=== PATIENT | male | born 1960 | race Caucasian/White ===

== ENCOUNTER 2021-04-01 15:18 | Outpatient (REF) | payer OTHER, SELFPAY ==
[2021-04-06 16:52] LABS: Testosterone, Free 104.4 pg/mL (35.0-155.0); Testosterone, Total 391 ng/dL (250-1100)
== END 2021-04-01 15:19 | disposition home or self-care (01) ==
LOC: HO.MANLDS 15:18
PROVIDERS: PCP Physician Assistant; Visit Provider Physician Assistant
DX: N52.9 Male erectile dysfunction, unspecified (principal)
CPT/HCPCS: 36415; 84402; 84403

== ENCOUNTER 2022-05-12 10:05 | Outpatient (REF) | payer OTHER, SELFPAY ==
[2022-05-12 12:55] LABS: MANUAL DIFF FLAG NO
[2022-05-12 13:09] LABS: Basophils Absolute Auto 0.1 X10*3/uL (0.0-0.2); Basophils Percent Auto 0.8 % (0-2); Eosinophils Absolute Auto 0.2 X10*3/uL (0.0-0.4); Eosinophils Percent Auto 3.8 % (0-4); Hematocrit 42.9 % (42.0-52.0); Hemoglobin 14.7 g/dl (14.0-18.0); Imm Gran Abs Auto 0.08 X10*3/uL (0.00-0.03); Imm Gran Pct Auto 1.3 % (0.0-0.4); Lymphocytes Absolute Auto 1.6 X10*3/uL (1.2-4.9); Lymphocytes Percent Auto 24.9 % (20-40); Mean Corpuscular HGB Conc 34.3 g/dl (31.0-36.0); Mean Corpuscular Hemoglobin 29.1 pg (27.0-33.0); Mean Platelet Volume 10.6 fL (9.4-12.4); Monocytes Absolute Auto 0.5 X10*3/uL (0.1-1.2); Monocytes Percent Auto 7.8 % (2-11); Neutrophils Absolute Auto 3.9 x10*3/uL (2.0-8.3); Neutrophils Percent Auto 61.4 % (45-73); Platelet Count 322 X10*3/uL (160-400); Red Blood Count 5.05 X10*6/uL (4.60-5.80); Red Cell Distribution Width 14.5 % (11.0-16.0); White Blood Count 6.4 X10*3/uL (4.8-10.8)
[2022-05-12 13:44] LABS: Alanine Aminotransferase 24 U/L (0-40); Albumin Level 4.3 g/dL (3.5-5.0); Alkaline Phosphatase 103 U/L (39-117); Anion Gap 12 (12-20); Aspartate Amino Transferase 21 U/L (5-37); Bilirubin Total 0.6 mg/dL (0.0-1.0); Blood Urea Nitrogen 14 mg/dL (9-16); Calcium 9.4 mg/dL (8.4-10.2); Carbon Dioxide 30 mmol/L (22-29); Chloride 102 mmol/L (96-108); Cholesterol 217 mg/dL; Estimated Glomerular Filt Rate > 60; Glucose Random 129 mg/dL (60-115); HDL Cholesterol 50 mg/dL; LDL Cholesterol Calculated 140 mg/dl; Potassium 4.6 mmol/L (3.3-5.1); Sodium 139 mmol/L (135-145); Total Protein 6.9 g/dL (6.5-8.0); Triglycerides 139 mg/dL
[2022-05-12 13:59] LABS: Prostate Specific Antigen 9.35 ng/mL (<0.05-4.0); Thyroid Stimulating Hormone 1.36 uIU/mL (0.32-4.0); Vitamin D 25-OH Total 80.3 ng/mL (>30)
== END 2022-05-12 10:06 | disposition home or self-care (01) ==
LOC: HO.MANLDS 10:05
PROVIDERS: Visit Provider Internal Medicine
DX: Z00.00 Encounter for general adult medical examination without abnormal findings (principal); Z12.5 Encounter for screening for malignant neoplasm of prostate; Z20.2 Contact with and (suspected) exposure to infections with a predominantly sexual mode of transmission; E78.00 Pure hypercholesterolemia, unspecified; E55.9 Vitamin D deficiency, unspecified; G93.32 Myalgic encephalomyelitis/chronic fatigue syndrome
CPT/HCPCS: 36415; 80053; 80061; 82306; 84153; 84443; 85025

== ENCOUNTER 2023-04-15 07:57 | Outpatient (REF) | payer OTHER, SELFPAY ==
[2023-04-15 12:34] LABS: Estimated Average Glucose 131 mg/dL; Hemoglobin A1C 150.8308 umol/L; Hemoglobin A1c % 6.2 % (<6.0)
[2023-04-15 13:03] LABS: Alanine Aminotransferase 19 U/L (0-40); Albumin Level 4.2 g/dL (3.5-5.0); Alkaline Phosphatase 90 U/L (39-117); Anion Gap 13 (12-20); Aspartate Amino Transferase 22 U/L (5-37); Bilirubin Total 0.5 mg/dL (0.0-1.0); Blood Urea Nitrogen 19 mg/dL (9-16); Calcium 9.2 mg/dL (8.4-10.2); Carbon Dioxide 28 mmol/L (22-29); Chloride 106 mmol/L (96-108); Cholesterol 186 mg/dL (<200); Estimated Glomerular Filt Rate > 60; Glucose Random 147 mg/dL (60-115); HDL Cholesterol 53 mg/dL (>40); LDL Cholesterol Calculated 112 mg/dL (<100); Potassium 4.7 mmol/L (3.3-5.1); Sodium 142 mmol/L (135-145); Total Protein 7.2 g/dL (6.5-8.0); Triglycerides 105 mg/dL (<150)
[2023-04-15 13:18] LABS: Vitamin D 25-OH Total 31.3 ng/mL (>30)
[2023-04-15 13:25] LABS: Vitamin B12 416 pg/mL (200-900)
[2023-04-22 13:28] LABS: Testosterone, Total 366 ng/dL (250-1100)
== END 2023-04-15 07:58 | disposition home or self-care (01) ==
LOC: HO.MANLDS 07:57
PROVIDERS: Visit Provider Internal Medicine
DX: G35 Multiple sclerosis (principal); R73.9 Hyperglycemia, unspecified; N52.9 Male erectile dysfunction, unspecified
CPT/HCPCS: 36415; 80053; 80061; 82306; 82607; 83036; 84403

== ENCOUNTER 2024-04-27 10:05 | Outpatient (REF) | payer OTHER, SELFPAY ==
--- OUTSIDE RECORDS SUMMARY | 2024-04-27 11:20 | XMS_ITS | Clinical Summary ---
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 Name Role Phone Pcp, No Primary Care Provider Unavailabl e Allergies No known active allergies Social History Tobacco Use Types Packs/Day Years Used Date Smoking Tobacco: Former Smokeless Tobacco: Never Sex and Gender Information Value Date Recorded Sex Assigned at Not on file Gender Identity Not on file Sexual Orientation Not on file Last Filed Vital Signs Vital Sign Reading Time Taken Comments Blood Pressure 136/93 02/10/2020 9:47 AM EST Pulse 68 02/10/2020 9:47 AM EST Temperature 37.1 ??C (98.7 ??F) 02/10/2020 9:47 AM ES T Respiratory Rate - - Oxygen Saturation 98% 02/10/2020 9:47 AM EST Inhaled Oxygen Concentration - - Weight 81.6 kg (180 lb) 02/10/2020 9:47 AM EST Height 175.3 cm (5' 9 ) 02/10/2020 9:47 AM EST Body Mass Index 26.58 02/10/2020 9:47 AM EST Plan of Treatment Health Maintenance Due Date Last Done Comments Hepatitis C Virus Screening 1962 HIV Screening 10/07/1975 DTaP/Tdap/Td Vaccines (1 - Tdap) 1981 Colonoscopy 10/07/2007 Pneumococcal Vaccines 50+ (1 of 1 - PCV) 2012 Zoster (Shingles) Vaccine (1 of 2) 2012 Influenza Vaccine 09/15/2023 COVID-19 Vaccine (2 - 2023-2 5 season) 2023 05/26/2020 RSV Vaccine 60 years and old er and Patients (1 - 1-dose 75+ series) 2037 Hepatitis B Vaccines Aged Out No long er eligible based on patient's age to complete this topic Pneumococcal Vaccine: Pediat francy (0-5 Years) and At-Risk Patients (6 to 49 Years) Aged Out No longer eligible b ased on patient's age to complete this topic Care Teams Elastic Attacher Chainstitch Relationship Specialty Start Date End Date Pcp, No PCP - General General Medicine 01/31/20
--- OUTSIDE RECORDS SUMMARY | 2024-04-27 11:20 | XMS_ITS | Continuity of Care Document ---
Author Organization [facility], [facility] Address [address] [place] [address] [place] [address] Assessment Encounter Date Assessment Date Assessment LastModified by Organization Details LastModified Time 04/27/2024 04/27/2024 [id number] [place] [id number] (MASTER PLUMBER) MDM MODERATE MUST MEET 2 OUT OF 3 ELEMENTS: PROBLEMS, DATA OR RISK ELEMENT 1: PROBLEMS ADDRESSED 1 OR MORE CHRONIC ILLNESS WITH EXACERBATION OR 2 OR MORE STABLE CHRONIC ILLNESSES OR 1 UNDIAGNOSED NEW PROBLEM OR 1 ACUTE ILLNESS W/SYMPTOMS OR 1 ACUTE COMPLICATED INJURY ELEMENT 2: DATA MUST MEET 1 OF 3 CATEGORIES CATEGORY 1: REVIEW OF PRIOR EXTERNAL NOTES, REVIEW OF RESULTS, ORDERING OF EACH TEST, ASSESSMENT REQUIRING INDEPENDENT HISTORIAN OR CATEGORY 2: INDEPENDENT INTERPRETATION OF TESTS BY ANOTHER PHYSICIAN OR SPECIALIST OR CATEGORY 3: DISCUSSION OF MGT OR TEST INTERPRETATION W/EXTERNAL PHYSICIAN OR SPECIALIST ELEMENT 3: RISK RISK OF COMPLICATIONS AND/OR MORBIDITY OR MORTALITY OF PATIENT MANAGEMENT PROVIDER MUST THOROUGHLY DOCUMENT EACH ELEMENT THAT IS COVERED Not available 04/27/2024 09:53:35 Plan of Treatment Reminders Order Date Submit Date Provider Last Modified By Organization Details Last Modified Time Details Appointments FOLLOW UP 15 2024 09:45A M DR GUPTA Not available Not available Not available Lab PSA, total + free, serum or plasma 2024 025 [facility], [address] [place] [address], [place], [id number], 04/27/2024 09:57:21 HbA1c (hemoglob in A1c), blood 2024 025 [facility], [address] [place] [address], [place], [address], 04/27/2024 09:57:21 CMP, serum or plasma 2024 025 [facility], [address] [place] [address], [id number], 04/27/2024 09:57:21 CBC 2024 025 [facility], [address] [place] [address], [id number], 04/27/2024 09:57:21 lipid panel, serum 2024 025 [facility], [address] [place] [address], [id number], 04/27/2024 09:57:21 vitamin D, 25-hydrox y, total, serum 2024 025 [facility], [address] [place] [address], [id number], 04/27/2024 09:57:21 vitamin B12, serum 2024 025 [facility], [address] [place] [address], [id number], 04/27/2024 09:57:21 Referral None recorded. Procedures None recorded. Surgeries None recorded. Imaging CT, coronary calcium score 2024 025 [email or web address] [facility], [facility] [place], [address], 04/27/2024 10:15:34 Medication Orders None recorded. Patient TargetsNo targets recorded. Patient InstructionsNo instructions recorded. Reason for Referral None Reported. Problems Name Problem SNOMED Code Status Onset Date Resolution Date Notes Provider Name and Address Organization Details Recorded Time Obstructiv e sleep apnea syndrome 45255449 Active 2017 Not Available [facility] 4 23:20:52 Cyst of kidney 786133357 Active 2017 Not Available [facility] 4 23:20:52 Gastroesop hageal reflux disease 312375036 Active 2017 Not Available [facility] 4 23:20:52 Multiple sclerosis 85285734 Active 2017 Not Available [facility] 4 23:20:52 Prostate specific antigen above reference range 836567142 Active 2018 Not Available [facility] 4 23:20:52 Hyperglyce harshad 22153701 Active 2023 Not Available [facility] 4 23:20:52 Cough 84421806 Active 2024 Hardik Gupta, [address], [address], [facility] 5 17:07:15 Patellofem oral stress syndrome 359770755 Active 2024 Hardik Gupta [address], [address], [facility] 5 09:48:13 Notes:Some problems listed i n Documents: #[id number], #[id number], #[id number], #[id number] could not be added to this patient's chart. Please review these documents and add these problems to the patient's chart manually as needed. Problem Notes None recorded. Procedures Surgical History Date Name Laterality Status Provider Name and Address Organization Details Recorded Time 10/23/19 22 Colonoscopy completed Hardik Gupta [address], [address], [facility] 10/22/2021 14:58:33 07/04/19 19 Colonoscopy completed Cynthia [facility] 07/03/2018 12:31:09 05/28/19 16 Colonoscopy completed Cynthia [facility] 11/08/2017 08:33:30 Imaging Results None recorded. Procedure Notes None recorded. Medical Equipment None Reported. Allergies No known drug allergies Medications Name Sig Start Date Stop Date Status Note LastModified by Organization Details LastModified Time amoxicillin 500 mg capsule TAKE 1 CAPSULE BY MOUTH EVERY 8 HOURS 04/27 completed Not Available Not Available Not Available prednisone 10 mg tablet 04/26 completed Not Available Not Available Not Available sildenafil 50 mg tablet TAKE 1 TABLET BY MOUTH EVERY DAY FOR 30 DAYS active Not Available Not Available No t Available triamcinolo ne acetonide 0.5 % topical cream APPLY A THIN LAYER TO THE AFFECTED AREA(S) BY TOPICAL ROUTE 2 TIMES PER DAY 12/18 completed Not Available Not Available Not Available azithromyci n 250 mg tablet TAKE 2 TABLETS BY MOUTH TODAY, THEN TAKE 1 TABLET DAILY FOR 4 DAYS DIRECTED 04/27 completed Not Available Not Available Not Available peg-electro lyte solution 420 gram oral solution TAKE 8 OUNCE BY MOUTH DIRECTED FOLLOW INSTRUCTI ONS GIVEN BY DOCTORS OFFICE 01/11 completed Not Available Not Available Not Available acetaminoph en 500 mg tablet TAKE 1 TABLET EVERY 6 HOURS NEEDED FOR PAIN 04/27 completed Not Available Not Available Not Available tamsulosin 0.4 mg capsule TAKE 1 CAPSULE BY MOUTH EVERY DAY active Not Available Not Available No t Available Mapap (acetaminop hen) 500 mg capsule TAKE 1 CAPSULE BY MOUTH EVERY 6 HOURS NEEDED FOR PAIN 04/27 completed Not Available Not Available Not Available oseltamivir 75 mg capsule 03/27 completed Not Available Not Available Not Available diclofenac sodium 75 mg tablet,tayler yed release TAKE 1 TABLET BY MOUTH TWICE A DAY WITH FOOD DIRECTED 04/27 completed Not Available Not Available Not Available ibuprofen 600 mg tablet TAKE 1 TABLET EVERY 6 HOURS NEEDED FOR PAIN 04/27 completed Not Available Not Available Not Available fluticasone propionate 50 mcg/actuati on nasal spray,suspe nsion 12/18 completed Not Available Not Available Not Available naproxen 500 mg tablet Take 1 tablet twice a day by oral route for 30 days. 03/27 completed Not Available Not Available Not Available oxycodone 5 mg tablet TAKE 1 TABLET BY MOUTH EVERY 6 HOURS NEEDED FOR SEVERE PAIN 04/27 completed Not Available Not Available Not Available chlorhexidi ne gluconate 0.12 % mouthwash SWISH AND SPIT 15 ML TWICE DAILY FOR 14 DAYS STARTING DAY AFTER PROCEDURE . 04/27 completed Not Available Not Available Not Available omeprazole 20mg every day active Not Available Not Available No t Available MoviPrep 100 gram-7.5 gram-2.691 gram oral powder packet 12/18 completed Not Available Not Available Not Available cholecalcif dao (vitamin D3) 1,250 mcg (50,000 unit) capsule TAKE 1 CAPSULE BY MOUTH ONE TIME PER WEEK active Not Available Not Available No t Available Copaxone 40 mg/mL subcutaneou s syringe Inject 1 mL 3 times a week by subcutane ous route for 90 days. active Not Available Not Available No t Available Vitals Date Recorded Body height Body mass index (BMI) Body weight Heart rate Oxygen saturation Oxygen saturation in Arterial blood by Pulse oximetry Systolic blood pressure Diastolic blood pressure Provider Name and Address Organization Details Last Updated DateTime 5 176.53 cm 26.9 kg/m2 75929.7 9 g 64 /min 98 % 98 % 128 mm[Hg] 88 mm[Hg] Annabel Lyn [facility] 5 09:35:19 Social History Question Answer Notes LastModified by Organizat ion Details LastModified Time Tobacco Smoking Status Never Smoker Not Available [facility] 12/18/2019 03:36:24 What Was The Date Of Your Most Recent Tobacco Screening? 01/11/2022 [email or web address] Information not available 01/11/2022 Sex: Unknown Functional Status None recorded. Mental Status None recorded. Family History Nothing Reported. Medical History No medical history recorded. Immunizations Vaccine Type Date Status Note Provider Nam e and Address Organization Details Recorded Time Influenza, split virus, quadrivalent, preservative 1 completed Not Available [facility] 03/27/2023 23:20:52 COVID-19, mRNA, LNP-S, PF, 30 mcg/0.3 mL dose 2 completed Not Available [facility] 03/27/2023 23:20:52 Past Encounters Encounter ID Performer Location Encounter Start Date Encounter Closed Date Diagnosis/Indication Diagnosis SNOMED-CT Code Diagnosis ICD10 Code Diagnosis Note [id number] DO [facility] [address],[place] [address] 04/27/2024 09:19:52 04/27/2024 10:15:34 Hyperglycemia 41514187 R73.9 will cont to monitor Multiple sclerosis 36533 007 G35 await the neurologis tdoing great and feels well sched for mri mid mar and f/u with neuro at [facility] still on copaxone Prostate s pecific antigen above reference range 965461468 R97.20 PSA is coming down - will continue to monitorsti ll followed by dr collins Depression screening 171 598127 Z13.31 SCREENING NEGATIVE Family his tory of Cardiovascular disease 936094443 Z82.49 Health Concerns Section Related Observation LastModified by Organization Detai ls LastModified Time None Recorded Concern Status LastModified by Organization Details LastModified Time None Recorded Payers Encounter Date Sequence Insurance Name Policy Number Policy Yu Covered Member ID Yu Member ID Guarantor Name 04/27/[address] [place] [address] [id number] Julieta Barger [id number] Cristofer Barger Notes Date Note Type Note Provider Name a nd Address Organization Details Recorded Time 04/27/2024 text/html here for rechk and is doing wellno cp no sobbladder doing well has been having a great deal of discomfort in his right elbow for the last 2-3 months Hardik Gupta, DO [address] [place], [address], [facility] 04/27/2024 10:03:36
--- OUTSIDE RECORDS SUMMARY | 2024-04-27 11:20 | XMS_ITS | Data Portability ---
Author Organization [facility] Service Address [address] [place] [address] Assessment Encounter Date Assessment Date Assessment LastModified by Organization Details LastModified Time 03/10/2021 03/10/2021 [id number] [place] [address] (DENTAL PROSTHETIST) MDM MODERATE MUST MEET 2 OUT OF [...] EACH ELEMENT THAT IS COVERED Not available 03/10/2021 15:04:26 03/25/2023 03/25/2023 [address] [place] [address] (DENTAL PROSTHETIST) : MDM LOW MUST MEET 2 OF 3 ELEMENTS: PROBLEMS, DATA OR RISK ELEMENT 1: PROBLEMS ADDRESSED (LOW): 2 OR MORE SELF-LIMITED OR MINOR PROBLEMS OR 1 STABLE CHRONIC ILLNESS OR 1 ACUTE UNCOMPLICATED ILLNESS OR INJURY ELEMENT 2: DATA TO BE REVISED AND ANALYZED (LOW) MUST MEET 1 OF 2 CATEGORIES: CATEGORY 1. REVIEW OF PRIOR EXTERNAL NOTES/RESULTS, ORDERING OF TEST(S) CATEGORY 2. ASSESSMENT REQUIRING INDEPENDENT HISTORIAN(S) INCLUDE WHO THE HISTORIAN IS AND RELATION TO PT AND WHY PT IS UNABLE TO GIVE COMPLETE HISTORY ELEMENT 3: RISK (LOW) RISK OF COMPLICATIONS AND/OR MORBIDITY OR MORTALITY OF PATIENT MANAGEMENT PROVIDER MUST THOROUGHLY DOCUMENT ALL OF THE ELEMENTS COVERED Not available 03/25/2023 11:54:47 04/27/2024 04/27/2024 [address] [place] [address] (DENTAL PROSTHETIST) MDM MODERATE MUST MEET 2 OUT OF [...] + free, serum or plasma 2024 025 [facility], [address] [place] [address], [id number], 04/27/2024 09:57:21 HbA1c (hemoglob in A1c), blood 2024 025 [facility], [address] [place] [address], [id number], 04/27/2024 09:57:21 CMP, serum or plasma 2024 025 [facility], [address] [place], [address], 04/27/2024 09:57:21 CBC 2024 025 [facility], [address] [place] [address], [address], 04/27/2024 09:57:21 lipid panel, serum 2024 025 [facility], [address] [place] [address], [address], 04/27/2024 09:57:21 vitamin D, 25-hydrox y, total, serum 2024 025 [facility], [address] [place] [address], [address], 04/27/2024 09:57:21 vitamin B12, serum 2024 025 [facility], [address] [place] [address], [address], 04/27/2024 09:57:21 testoster one, total, serum 2023 024 [facility], [address] [place] [address], [address], 04/25/2023 11:11:12 HbA1c (hemoglob in A1c), blood 2023 024 [facility], [address] [place] [address], [address], 03/25/2023 12:27:43 CMP, serum or plasma 2023 024 [facility], [address] [place] [address], 297[address], 04/18/2023 11:20:47 lipid panel, serum 2023 024 [facility], [address] [place] [address], 36[address], 03/25/2023 12:27:43 vitamin D, 25-hydrox y, total, serum 2023 024 [facility], [address] [place] [address], 37[address], 03/25/2023 12:27:43 vitamin B12, serum 2023 024 [facility], [address] [place] [address], [address], 03/25/2023 12:27:43 CMP, serum or plasma 2021 [facility], [address] [place] [address], 15442, 05/13/2022 18:08:40 lipid panel, blood 2021 [facility], [address] [place] [address], 63[address], 01/11/2022 11:40:38 CBC w/ auto diff 2021 [facility], [address] [place] [address], 877[address], 01/11/2022 11:40:37 PSA, serum or plasma 2021 [facility], [address] [place] [address], 49903, 06/18/2022 08:19:27 vitamin D, 25-hydrox y, total, serum 2021 [facility], [address] [place] [address], 36818, 01/11/2022 11:40:38 TSH, serum or plasma 2021 [facility], [address] [place] [address], 88606, 01/11/2022 11:40:37 lyme disease igg+igm, serum, reflex western blot 2019 020 [facility], [address] [place] [address], 76956, 10/30/2019 09:14:56 SARS CoV 2 Ab, QL, serum or plasma (OBS) 2019 020 [facility], [address] [place] [address], 64062, 10/30/2019 09:14:56 anaplasma phagocyto philum (hga/hge) igg+igm Ab, serum 2019 020 [facility], [address] [place] [address], 76227, 10/17/2019 17:03:17 babesia microti igg+igm Ab, serum 2019 020 [facility], [address] [place] [address], 89[address], 10/17/2019 17:03:17 ESR (erythroc yte sedimenta tion rate), blood 2019 020 [facility], [address] [place] [address], 25768, 10/17/2019 17:03:17 Referral None recorded. Procedures None recorded. Surgeries None recorded. Imaging CT, coronary calcium score 2024 025 [email or web address] [facility], [place], [address], 04/27/2024 10:15:34 Medication Orders sildenafi l 50 mg tablet 2023 024 [facility] #[id number], [address] [place], [address], 03/25/2023 12:21:36 tamsulosi n 0.4 mg capsule 2023 024 [facility] #[id number], [address] [place], [address], 04/07/2023 09:34:43 tamsulosi n 0.4 mg capsule 2021 022 [facility] #[id number], [address] [place], [address], 03/10/2021 15:05:44 Patient TargetsNo targets recorded. Patient Instructions Encounter Date Encounter Id Patient Instructions Last Modified By Organization Details Last Modified Time 10/17/2019 [id number] sleep apnea: car e instructions Not available 10/17/2019 16:58:27 gastroesophageal reflux disease (GERD): care instructions Not available 10/17/2019 16:58:27 multiple scleros is (MS): care instructions Not available 10/17/2019 16:58:27 03/10/2021 [id number] gastroesophageal reflux disease (GERD): care instructions Not available 03/10/2021 15:05:42 multiple scleros is (MS): care instructions Not available 03/10/2021 15:05:42 03/25/2023 [id number] learning about h igh blood sugar Not available 03/25/2023 12:21:33 Reason for Referral None Reported. Results Created Date Observation Date Name Description Value Unit Range Abnormal Flag Note LastModifiedBy Organization Detail LastModifiedTime 12/10/19 20 12/10/2019 MRI, brain , w/wo contr ast No observ ation record ed. sbucko [facility] [address] [place], [address], 12/14/2019 10:11:36 06/17/19 23 03/12/2022 MRI, brain , w/o contr ast No observ ation record ed. [facility] [address] [place], [address], 06/16/2022 16:06:04 08/28/19 23 06/21/2022 MRI, prost ate, w/wo contr ast No observ ation record ed. [email or web address] [facility] [address] [place], [address], 08/27/2022 15:14:03 Result Notes None recorded. Problems Name Problem SNOMED Code Status Onset Date Resolution Date Notes Provider Name and Address Organization Details Recorded Time Obstructiv e sleep apnea syndrome 96201105 Active 2017 Not Available [facility] 4 23:20:52 Cyst of kidney 263194157 Active 2017 Not Available [facility] 4 23:20:52 Gastroesop hageal reflux disease 719552410 Active 2017 Not Available [facility] 4 23:20:52 Multiple sclerosis 55885555 Active 2017 Not Available [facility] 4 23:20:52 Prostate specific antigen above reference range 854994809 Active 2018 Not Available [facility] 4 23:20:52 Hyperglyce harshad 47251591 Active 2023 Not Available [facility] 4 23:20:52 Cough 61449254 Active 2024 Hardik Gupta DO [address] [place] [address], [address], [facility] 5 17:07:15 Patellofem oral stress syndrome 097057931 Active 2024 Hardik Gputa, DO [address] [place] [address], [address], [facility] 5 09:48:13 Notes:Some problems listed i n Documents: #[id number], #[id number], #[id number], #[id number] could not be added to this patient's chart. Please review these documents and add these problems to the patient's chart manually as needed. Problem Notes None recorded. Procedures Surgical History Date Name Laterality Status Provider Name and Address Organization Details Recorded Time 10/23/19 22 Colonoscopy completed Hardik Gupta DO [address] [place] [address], [phone], [facility] 10/22/2021 14:58:33 07/04/19 19 Colonoscopy completed Cynthia [facility] 07/03/2018 12:31:09 05/28/19 16 Colonoscopy completed Cynthia Lemon [facility] 11/08/2017 08:33:30 Imaging Results Imaging Date Name Status LastModified by Organ ation Details LastModified Time 12/10/2019 MRI, brain, w/wo contrast completed sbucko [facility] [address] [facility], [place], [address], 12/14/2019 10:11:36 03/12/2022 MRI, brain, w/o contrast completed [facility] ([facility] [address], [place], [address], 06/16/2022 16:06:04 06/21/2022 MRI, prostate, w/wo contrast completed jbigda [facility] [address], [place], [address], 08/27/2022 15:14:03 Procedure Notes None recorded. Medical Equipment None [...] and Address Organization Details Last Updated DateTime 0 175.9 cm 27.6 kg/m2 24667.5 2 g 85 /min 98 % 98 % 122 mm[Hg] 70 mm[Hg] [facility] 0 16:34:14 Date Recorded Body height Body mass index (BMI) Body weight Oxygen saturation Oxygen saturation in Arterial blood by Pulse oximetry Heart rate Systolic blood pressure Diastolic blood pressure Provider Name and Address Organization Details Last Updated DateTime 2 175.9 cm 28.1 kg/m2 82579.9 4 g 99 % 99 % 68 /min 128 mm[Hg] 70 mm[Hg] Rosalia Aurora [facility] 2 10:55:49 Date Recorded Body height Body mass index (BMI) Body weight Heart rate Oxygen saturation Oxygen saturation in Arterial blood by Pulse oximetry Systolic blood pressure Diastolic blood pressure Provider Name and Address Organization Details Last Updated DateTime 5 176.53 cm 26.9 kg/m2 71311.7 9 g 64 /min 98 % 98 % 128 mm[Hg] 88 mm[Hg] Annabel Lyn [facility] 5 09:35:19 Social History Question Answer Notes LastModified by Organizat ion Details LastModified Time Tobacco Smoking Status Never Smoker Not Available [facility] 12/18/2019 03:36:24 What Was The Date Of Your Most Recent Tobacco Screening? 01/11/2022 [email or web address] Information not available 01/11/2022 Sex: Unknown Functional Status None recorded. Mental Status None recorded. Family History Nothing Reported. Medical History No medical history recorded. Immunizations Vaccine Type Date Status Note Provider Nam e and Address Organization Details Recorded Time Influenza, split virus, quadrivalent, preservative 1 completed Not Available [facility] 03/27/2023 23:20:52 COVID-19, mRNA, LNP-S, PF, 30 mcg/0.3 mL dose 2 completed Not Available [facility] 03/27/2023 23:20:52 Past Encounters Encounter ID Performer Location Encounter Start Date Encounter Closed Date Diagnosis/Indication Diagnosis SNOMED-CT Code Diagnosis ICD10 Code Diagnosis Note [id number] Hardik Gupta DO [facility] [address] [facility] [facility] [address] 11/08/2017 14:33:51 11/08/2017 15:21:51 Allergic rhinitis 76336564 J30.9 will restart treatment with flonase daily and claritin and will let me know next week (he had not been taking it on reg basis) [id number] Jennie Renee NP, S [facility] [address] [facility], [place] [address] 04/26/2018 10:35:35 04/26/2018 16:33:09 Pruritic rash 46889419 L28.2 Obstructiv e sleep apnea syndrome 36633708 G47.33 Gastroesop hageal reflux disease 885209052 K21.9 [id number] Hardik Gupta DO [facility] [address] [facility] [address] [address] 05/08/2018 15:10:14 05/08/2018 16:02:26 Increased frequency of urination 441569840 R35.0 with nocturia and poor stream Benign pro static hyperplasia 537550600 N40.1 will try flomax Fatigue 26143623 R53.83 Hardik Gupta [facility] [address] [facility] [address] [place] [place] [address] 06/28/2018 09:04:52 06/28/2018 09:45:59 Prostate specific antigen above reference range 312123401 R97.20 last two tests have been same long discussion with pat will repeat test in oct as he will be going on a long bicycle trip mid summer and we dont want this to be a factor [id number] Hardik Gupta DO [facility] [address] [facility] [address], [address]e [facility] [address] 12/18/2018 15:35:14 12/18/2018 16:02:44 Gastroesophageal reflux disease 833984671 K21.9 stable on omeprazole Obstructiv e sleep apnea syndrome 01177834 G47.33 stable and doing good Prostate s pecific antigen above reference range 599256700 R97.20 new test is actually lower than previous tests in toto now at 5.4 last two tests have been same long discussion with pat will repeat test and we will also get a US of the prostate note he is still riding long rides on his bicycle [id number] Hardik Gupta DO [facility] [address] [facility] [address], [address] [facility] [place] [address] 03/27/2019 16:23:07 03/27/2019 16:47:10 Prostate specific antigen above reference range 362305002 R97.20 PSA is coming down - will continue to monitor Influenza 7060903 J11.1 Took tamiflu and seems to be healing [id number] Hardik Gupta DO [facility] [address] [facility],[place] [address] 10/17/2019 16:16:47 10/19/2019 12:53:25 Multiple sclerosis 11938665 G35 Gastroesop hageal reflux disease 961965777 K21.9 stable on omeprazole Obstructiv e sleep apnea syndrome 01934823 G47.33 stable and doing good Fever 031587285 R50.9 [id number] Hardik Edith Gupta [facility] [address] [facility],[place] [address] 03/10/2021 08:18:52 03/10/2021 15:39:02 Multiple sclerosis 01395987 G35 await the neurologis t report Gastroesop hageal reflux disease 559789898 K21.9 stable on omeprazole Prostate s pecific antigen above reference range 811846969 R97.20 PSA is coming down - will continue to monitor [id number] Hardik Gupta [facility] [address] [facility],[place] [address] 01/11/2022 10:49:34 01/11/2022 13:48:28 Active or passive immunization 906767547 Z23 utd will get shingles soon Adult heal th examination 658327650 Z00.00 [id number] Hardik Gupta [facility] [address] [facility],[place] [address] 03/25/2023 10:05:34 03/25/2023 14:48:36 Gastroesophageal reflux disease 294796705 K21.9 stable on omeprazole Multiple sclerosis 33630 007 G35 await the neurologis t reportbrittny lopez and feels well sched for mri mid mar and f/u with neuro in [place] still on copaxone Primary er ectile dysfunction 761214864 N52.9 Prostate s pecific antigen above reference range 039722957 R97.20 PSA is coming down - will continue to monitorsti ll followed by dr collins Hyperglycemia 66467140 R 73.9 had tested his glucose at home with 's machine and was elevated at 16 we will look into this with a1c [id number] DO [facility] [address] [facility] [address],[place] D [facility] [place] [address] 04/27/2024 09:19:52 04/27/2024 10:15:34 [facility] 35847669 R73.9 will cont to monitor Multiple sclerosis 22894 007 G35 await the neurologis richie lopez and feels well sched for mri mid mar and f/u with neuro at [facility] still on copaxone Prostate s pecific antigen above reference range 305996839 R97.20 PSA is coming down - will continue to monitorsti ll followed by dr collins Depression screening 171 807689 Z13.31 SCREENING NEGATIVE Family his tory of Cardiovascular disease 216299127 Z82.49 Health Concerns Section Related Observation LastModified by Organization Detai ls LastModified Time None Recorded Concern Status LastModified by Organization Details LastModified Time None Recorded Advance Directives Directive None Recorded Payers Encounter Date Sequence Insurance Name Policy Number Policy Yu Covered Member ID Yu Member ID Guarantor Name 10/17/2019 1 [facility] [id number] Julieta Barger [id number] Cristofer Barger 03/10/2021 1 [facility] [employer] [id number] Julieta Barger [id number] Cristofer Barger 01/11/2022 1 [facility] [employer] [id number] Julieta Barger [id number] Cristofer Barger 03/25/2023 1 [facility] [employer] [id number] Julieta Barger [id number] Cristofer Barger 04/27/2024 1 [facility] [employer] [id number] Julieta Barger [id number] Cristofer Barger Notes Date Note Type Note Provider Name a nd Address Organization Details Recorded Time 0 text/html here for rechk and is doing well overall stats no issues with meds follows specialist for MS in [place] sleep is good cpap good gerd sx are controlled with prilosec describes an illness of chills, shakes fatigues etc occuring one day and disappear the next would also stated that this occurred on monthly cycles for 4 months now it has stopped and has been clear since may having signif muscle and body aches all in his thorax and back no N/v/d headache during the episodes bladder ok appetite is good no cough no cp no sob no nasal sx no GI or sx Hardik Gupta DO [address] [place], [address], [facility] 10/17/2019 17:00:33 2 text/html patient is evaluated via tele/video assessment per patient consentduring current pandemichere for rechk and is doing ok relates that other than the recent infection thought to be omicron with a home test positive but pcr was negMS is stablebph is controlled with tamsulosinhas been seen by neurologist several weeks ago with a good visit and no new issue relates the heartburn is doing ok without issue occ has to take an extra omeprazole Hardik Gupta DO [address] [place], [address], [facility] 03/10/2021 15:06:21 2 text/html Annual WellnessReported bypatient.Diet and Nutrition:healthy diet Fracture Risk:no history of fractures; no recent explained fracture; no sudden unexplained fractures; no previous musculoskeletal injuries Physical Activity:exercises on a regular basis; recent increase in physical activity; good physical condition Additional Lifestyle Factors:no tobacco use; no alcohol intake; stopped drinking alcohol Depression Risk:never feels sad, empty, or tearful; no loss of interest in activities; no significant changes in weight; no sleep disturbances or insomnia; no agitation; no loss of energy; no feelings of worthlessness or guilt; no thoughts of suicide; no history of depression; no history of mood disorders Hearing:no loss of hearing Vision:no vision problems Hardik Gupta DO [address] [place], [address], [facility] 01/11/2022 11:37:13 4 text/html patient is evaluated via tele/video assessment per patient consentduring current pandemic actually doing ok and related he is working a diff job and has a lot less stress and is more physicalhe relates he is doing okstates that last summer he had noted his sugar was a bit elevated Hardik Gupta DO [address] [place], [address], [facility] 03/25/2023 12:22:37 5 text/html here for rechk and is doing wellno cp no sobbladder doing well has been having a great deal of discomfort in his right elbow for the last 2-3 months Hardik Gupta, DO [address] [facility], [place], [address], [facility] 04/27/2024 10:03:36
[2024-04-27 13:45] LABS: MANUAL DIFF FLAG NO
[2024-04-27 13:56] LABS: Basophils Percent Auto 0.9 % (0-2); Eosinophils Absolute Auto 0.2 X10*3/uL (0.0-0.4); Eosinophils Percent Auto 4.2 % (0-4); Hematocrit 42.1 % (42.0-52.0); Hemoglobin 14.2 g/dl (14.0-18.0); Imm Gran Abs Auto 0.04 X10*3/uL (0.00-0.03); Imm Gran Pct Auto 0.9 % (0.0-0.4); Lymphocytes Absolute Auto 0.9 X10*3/uL (1.2-4.9); Lymphocytes Percent Auto 21.8 % (20-40); Mean Corpuscular HGB Conc 33.7 g/dl (31.0-36.0); Mean Corpuscular Hemoglobin 29.2 pg (27.0-33.0); Mean Corpuscular Volume 86.4 fL (80.0-98.0); Mean Platelet Volume 10.6 fL (9.4-12.4); Monocytes Absolute Auto 0.4 X10*3/uL (0.1-1.2); Monocytes Percent Auto 10.2 % (2-11); Neutrophils Absolute Auto 2.7 x10*3/uL (2.0-8.3); Platelet Count 291 X10*3/uL (160-400); Red Blood Count 4.87 X10*6/uL (4.60-5.80); Red Cell Distribution Width 16.1 % (11.0-16.0); White Blood Count 4.3 X10*3/uL (4.8-10.8)
[2024-04-27 14:07] LABS: Estimated Average Glucose 143 mg/dL; Hemoglobin A1c % 6.6 % (<6.0)
[2024-04-27 14:23] LABS: Alanine Aminotransferase 32 U/L (0-40); Albumin Level 4.3 g/dL (3.5-5.0); Alkaline Phosphatase 87 U/L (39-117); Anion Gap 11 (12-20); Aspartate Amino Transferase 25 U/L (5-37); Bilirubin Total 0.6 mg/dL (0.0-1.0); Blood Urea Nitrogen 17 mg/dL (9-16); Carbon Dioxide 26 mmol/L (22-29); Chloride 106 mmol/L (96-108); Cholesterol 207 mg/dL (<200); Estimated Glomerular Filt Rate > 60; Glucose Random 126 mg/dL (60-115); HDL Cholesterol 57 mg/dL (>40); LDL Cholesterol Calculated 134 mg/dL (<100); Potassium 4.6 mmol/L (3.3-5.1); Sodium 138 mmol/L (135-145); Total Protein 7.5 g/dL (6.5-8.0); Triglycerides 82 mg/dL (<150)
[2024-04-27 14:25] LABS: Prostate Specific Antigen 11.83 ng/mL (<0.05-4.0)
[2024-04-27 14:30] LABS: Vitamin B12 634 pg/mL (200-900)
[2024-05-03 14:28] LABS: VITAMIN D (1,25 OH) D3 34 pg/mL; Vit D (1,25-Dihydroxy) Total 34 pg/mL (18-72); Vitamin D (1,25 OH) D2 <8 pg/mL
== END 2024-04-27 10:06 | disposition home or self-care (01) ==
LOC: HO.MANLDS 10:05
PROVIDERS: Visit Provider Internal Medicine
DX: R73.9 Hyperglycemia, unspecified (principal); G35 Multiple sclerosis; R97.20 Elevated prostate specific antigen [PSA]; Z12.5 Encounter for screening for malignant neoplasm of prostate
CPT/HCPCS: 36415; 80053; 80061; 82607; 82652; 83036; 84153; 85025

== ENCOUNTER 2024-05-04 11:07 | Outpatient (REF) | payer OTHER, SELFPAY ==
[2024-05-09 16:38] LABS: Testosterone, Total 459 ng/dL (250-1100)
== END 2024-05-04 11:08 | disposition home or self-care (01) ==
LOC: HO.MANLDS 11:07
PROVIDERS: Visit Provider Internal Medicine
DX: R53.83 Other fatigue (principal)
CPT/HCPCS: 36415; 84403